=== PATIENT | female | born 1950 | race African-American/Black ===

== ENCOUNTER 2023-06-11 07:22 | Inpatient (IN) | payer MEDICARE, BC ==
[2023-06-11 07:49] LABS: #Eosinphils 0.1 thou/uL (0.0-0.7); #Monocytes 0.7 thou/uL (0.11-0.59); #Neutrophils 8.3 thou/uL (1.40-6.50); %Basophils 0.2 % (0.0-1.0); %Eosinophils 1.1 % (0.0-10.0); %Monocytes 5.7 % (0.0-10.0); %Neutrophils 72.8 % (42.0-75.0); Hematocrit 37.5 % (36.0-47.0); Hemoglobin 12.2 g/dL (12.0-16.0); Mean Corpuscular HGB CONC 32.5 g/dL (32.0-36.0); Mean Corpuscular Hemoglobin 28.2 pg (27.0-31.0); Mean Corpuscular Volume 86.8 fl (78.0-98.0); Mean Platelet Volume 8.4 fL (7.4-10.4); Platelet Count 429 10x3/uL (130-400); RBC Distribution Width 12.7 % (11.5-14.5); Red Blood Cell (RBC) Count 4.32 mill/uL (4.20-5.40); White Blood Cell (WBC) Count 11.4 10x3/uL (4.8-10.8)
[2023-06-11 08:06] LABS: ALT (SGPT) 19 U/L (8-55); AST (SGOT) 26 U/L (5-34); Albumin 3.8 g/dL (3.4-4.8); Alkaline Phosphatase 112 U/L (40-110); Anion Gap 14 mmol/L (10-20); BUN (Urea Nitrogen) 13 mg/dL (9.8-20.1); Bilirubin, Total 0.4 mg/dL (0.2-1.2); Calc. Creatinine Clearance 0 mL/min (70-130); Carbon Dioxide 26 mmol/L (23-31); Chloride 103 mmol/L (98-107); Estimated GFR 75; Globulin 3.7 g/dL (2.4-3.5); Glucose 102 mg/dL (83-110); INR-International Normal Ratio 1.2; PTT 38.8 sec (22.9-36.1); Protein, Total 7.5 g/dL (5.8-8.1); Prothrombin Time 15.2 sec (12.0-14.7); Sodium 139 mmol/L (136-145)
[2023-06-11 08:09] LABS: Troponin I 0.069 ng/mL (< 0.028)
[2023-06-11 09:56] LABS: Bacteria/HPF None Seen HPF (None Seen); Bilirubin Negative (Negative); CAUTI Indications for Culture Alt mental st,lethar; Clarity Clear (Clear); Glucose, Urine (Dipstick) Normal (Negative); Ketone, Urine Trace mg/dL (Negative); Leukocyte Negative Leu/uL (Negative); Nitrite Negative (Negative); Protein, Urine (Dipstick) 20 mg/dL (Neg-Trace); Specific Gravity, Urine 1.027 (1.002-1.036); Squamous Epithelial 0-3 HPF (0-3); Urobilinogen Normal mg/dL (Less than 2); WBC/HPF 0-3 HPF (0-3)
[2023-06-11 10:18] LABS: Blood, Urine 2+ (Negative)
[2023-06-11 10:19] LABS: Urine Culture Reflex No No
[2023-06-11] MEDS ORDERED: Acetaminophen 325 MG TAB PO PRN (11:07)
[2023-06-11] MEDS ORDERED: Ondansetron ODT 4 MG TAB PO PRN (11:07)
[2023-06-11 11:28] LABS: Troponin I 0.059 ng/mL (< 0.028)
[2023-06-11 12:19] VITALS: BMI 25.2
[2023-06-11 15:08] LABS: Troponin I 0.069 ng/mL (< 0.028)
[2023-06-11] MEDS: busPIRone HCl 5 MG TAB PO SCH ×2 (15:42→20:30)
[2023-06-11] MEDS ORDERED: FLU VACC QS2023(65UP)/MF59C/PF 60 MCG/0.5 ML SYRINGE IM ONE (18:00)
[2023-06-11] MEDS: Cilostazol 100 MG TAB PO SCH (20:29)
[2023-06-11] MEDS: Gabapentin 100 MG CAP PO SCH (20:29)
[2023-06-11] MEDS: Atorvastatin Calcium 40 MG TAB PO SCH (20:30)
[2023-06-11] MEDS: Apixaban 5 MG TAB PO SCH (20:30)
[2023-06-11] MEDS: Melatonin 3 MG TAB PO PRN (20:53)
[2023-06-11] MEDS: Bisacodyl 5 MG TAB PO PRN (20:53)
[2023-06-11 21:50] LABS: Troponin I 0.061 ng/mL (< 0.028)
[2023-06-12 05:33] LABS: #Eosinphils 0.1 thou/uL (0.0-0.7); #Monocytes 0.7 thou/uL (0.11-0.59); #Neutrophils 7.6 thou/uL (1.40-6.50); %Basophils 0.2 % (0.0-1.0); %Eosinophils 1.1 % (0.0-10.0); %Lymphocytes 17.7 % (21.0-51.0); %Neutrophils 73.7 % (42.0-75.0); Hematocrit 34.3 % (36.0-47.0); Hemoglobin 11.3 g/dL (12.0-16.0); Mean Corpuscular HGB CONC 32.9 g/dL (32.0-36.0); Mean Corpuscular Hemoglobin 28.3 pg (27.0-31.0); Mean Corpuscular Volume 85.8 fl (78.0-98.0); Mean Platelet Volume 8.6 fL (7.4-10.4); Platelet Count 414 10x3/uL (130-400); RBC Distribution Width 12.6 % (11.5-14.5); White Blood Cell (WBC) Count 10.3 10x3/uL (4.8-10.8)
[2023-06-12 05:55] LABS: ALT (SGPT) 18 U/L (8-55); AST (SGOT) 22 U/L (5-34); Albumin 3.4 g/dL (3.4-4.8); Alkaline Phosphatase 102 U/L (40-110); Anion Gap 10 mmol/L (10-20); BUN (Urea Nitrogen) 12 mg/dL (9.8-20.1); Bilirubin, Total 0.3 mg/dL (0.2-1.2); Calc. Creatinine Clearance 70 mL/min (70-130); Calcium 9.2 mg/dL (7.8-10.44); Carbon Dioxide 26 mmol/L (23-31); Chloride 102 mmol/L (98-107); Estimated GFR 78; Globulin 3.2 g/dL (2.4-3.5); Glucose 105 mg/dL (83-110); Potassium 3.3 mmol/L (3.5-5.1); Protein, Total 6.6 g/dL (5.8-8.1); Sodium 135 mmol/L (136-145)
[2023-06-12] MEDS: Levothyroxine Sodium 50 MCG TAB PO SCH (05:59)
[2023-06-12] MEDS: Apixaban 5 MG TAB PO SCH (08:40)
[2023-06-12] MEDS: Cilostazol 100 MG TAB PO SCH ×2 (08:41→20:13)
[2023-06-12] MEDS: Escitalopram Oxalate 10 mg Tablet PO SCH (08:41)
[2023-06-12] MEDS: busPIRone HCl 5 MG TAB PO SCH ×3 (08:41→20:12)
[2023-06-12] MEDS: Bisacodyl 5 MG TAB PO PRN (08:42)
[2023-06-12] MEDS ORDERED: Potassium Bicarbonate/Cit Ac 20 MEQ TAB PO SCH (09:15)
[2023-06-12] MEDS ORDERED: Aspirin 81 mg Enteric Coated Tablet PO SCH (09:15)
[2023-06-12] MEDS: Gabapentin 100 MG CAP PO SCH (20:12)
[2023-06-12] MEDS: Melatonin 3 MG TAB PO PRN (20:13)
[2023-06-12] MEDS: Atorvastatin Calcium 40 MG TAB PO SCH (20:13)
[2023-06-13 04:32] LABS: #Eosinphils 0.1 thou/uL (0.0-0.7); #Monocytes 0.7 thou/uL (0.11-0.59); #Neutrophils 4.8 thou/uL (1.40-6.50); %Basophils 0.3 % (0.0-1.0); %Eosinophils 1.4 % (0.0-10.0); %Lymphocytes 28.2 % (21.0-51.0); %Monocytes 8.7 % (0.0-10.0); Hematocrit 34.3 % (36.0-47.0); Hemoglobin 11.4 g/dL (12.0-16.0); Mean Corpuscular HGB CONC 33.2 g/dL (32.0-36.0); Mean Corpuscular Hemoglobin 28.6 pg (27.0-31.0); Mean Corpuscular Volume 86.2 fl (78.0-98.0); Mean Platelet Volume 8.5 fL (7.4-10.4); Platelet Count 407 10x3/uL (130-400); RBC Distribution Width 12.8 % (11.5-14.5); Red Blood Cell (RBC) Count 3.98 mill/uL (4.20-5.40); White Blood Cell (WBC) Count 7.9 10x3/uL (4.8-10.8)
[2023-06-13 05:00] LABS: Anion Gap 11 mmol/L (10-20); BUN (Urea Nitrogen) 8 mg/dL (9.8-20.1); Calc. Creatinine Clearance 66 mL/min (70-130); Calcium 9.8 mg/dL (7.8-10.44); Carbon Dioxide 29 mmol/L (23-31); Chloride 102 mmol/L (98-107); Cholesterol 131 mg/dl (< 200 Desired); Estimated GFR 73; Glucose 101 mg/dL (83-110); HDL Cholesterol 44 mg/dL (>60 Neg Risk); LDL Cholesterol, Calculated 76 mg/dL; Potassium 3.8 mmol/L (3.5-5.1); Sodium 138 mmol/L (136-145); Triglycerides 57 mg/dL (Less than 150)
[2023-06-13] MEDS: Levothyroxine Sodium 50 MCG TAB PO SCH (05:40)
[2023-06-13] MEDS ORDERED: Aspirin 81 mg Enteric Coated Tablet PO SCH (09:00)
[2023-06-13] MEDS: Cilostazol 100 MG TAB PO SCH ×2 (10:08→20:19)
[2023-06-13] MEDS: Lorazepam 0.5 MG TAB PO PRN (10:08)
[2023-06-13] MEDS: busPIRone HCl 5 MG TAB PO SCH ×3 (10:08→20:19)
[2023-06-13] MEDS: Aspirin 81 mg Enteric Coated Tablet PO SCH (10:09)
[2023-06-13] MEDS: Escitalopram Oxalate 10 mg Tablet PO SCH (10:09)
[2023-06-13] MEDS: Gabapentin 100 MG CAP PO SCH (20:19)
[2023-06-13] MEDS: Atorvastatin Calcium 40 MG TAB PO SCH (20:19)
[2023-06-14 05:01] LABS: #Eosinphils 0.1 thou/uL (0.0-0.7); #Monocytes 0.6 thou/uL (0.11-0.59); #Neutrophils 5.6 thou/uL (1.40-6.50); %Basophils 0.2 % (0.0-1.0); %Eosinophils 1.5 % (0.0-10.0); %Monocytes 6.9 % (0.0-10.0); %Neutrophils 63.2 % (42.0-75.0); Hematocrit 35.8 % (36.0-47.0); Hemoglobin 11.8 g/dL (12.0-16.0); Mean Corpuscular Hemoglobin 28.3 pg (27.0-31.0); Mean Corpuscular Volume 85.9 fl (78.0-98.0); Mean Platelet Volume 8.6 fL (7.4-10.4); Platelet Count 444 10x3/uL (130-400); RBC Distribution Width 12.8 % (11.5-14.5); Red Blood Cell (RBC) Count 4.17 mill/uL (4.20-5.40); White Blood Cell (WBC) Count 8.9 10x3/uL (4.8-10.8)
[2023-06-14] MEDS: Levothyroxine Sodium 50 MCG TAB PO SCH (05:24)
[2023-06-14 05:41] LABS: Anion Gap 14 mmol/L (10-20); BUN (Urea Nitrogen) 9 mg/dL (9.8-20.1); Calc. Creatinine Clearance 73 mL/min (70-130); Calcium 9.8 mg/dL (7.8-10.44); Carbon Dioxide 27 mmol/L (23-31); Chloride 102 mmol/L (98-107); Estimated GFR 82; Glucose 96 mg/dL (83-110); Potassium 3.8 mmol/L (3.5-5.1); Sodium 139 mmol/L (136-145)
[2023-06-14] MEDS: busPIRone HCl 5 MG TAB PO SCH ×3 (08:33→21:06)
[2023-06-14] MEDS: Cilostazol 100 MG TAB PO SCH ×2 (08:33→21:05)
[2023-06-14] MEDS: Aspirin 81 mg Enteric Coated Tablet PO SCH (08:33)
[2023-06-14] MEDS: Escitalopram Oxalate 10 mg Tablet PO SCH (08:33)
[2023-06-14] MEDS: Bisacodyl 5 MG TAB PO PRN (15:38)
[2023-06-14] MEDS: Gabapentin 100 MG CAP PO SCH (21:06)
[2023-06-14] MEDS: Atorvastatin Calcium 40 MG TAB PO SCH (21:06)
[2023-06-15 05:00] LABS: #Eosinphils 0.1 thou/uL (0.0-0.7); #Monocytes 0.6 thou/uL (0.11-0.59); #Neutrophils 6.2 thou/uL (1.40-6.50); %Basophils 0.3 % (0.0-1.0); %Eosinophils 1.2 % (0.0-10.0); %Lymphocytes 27.3 % (21.0-51.0); %Monocytes 6.1 % (0.0-10.0); %Neutrophils 64.8 % (42.0-75.0); Hematocrit 36.7 % (36.0-47.0); Mean Corpuscular HGB CONC 32.7 g/dL (32.0-36.0); Mean Corpuscular Volume 85.7 fl (78.0-98.0); Mean Platelet Volume 8.4 fL (7.4-10.4); Platelet Count 453 10x3/uL (130-400); RBC Distribution Width 12.7 % (11.5-14.5); Red Blood Cell (RBC) Count 4.28 mill/uL (4.20-5.40); White Blood Cell (WBC) Count 9.6 10x3/uL (4.8-10.8)
[2023-06-15 05:24] LABS: Anion Gap 14 mmol/L (10-20); BUN (Urea Nitrogen) 10 mg/dL (9.8-20.1); Calc. Creatinine Clearance 72 mL/min (70-130); Calcium 9.9 mg/dL (7.8-10.44); Carbon Dioxide 26 mmol/L (23-31); Chloride 101 mmol/L (98-107); Estimated GFR 81; Glucose 96 mg/dL (83-110); Potassium 3.6 mmol/L (3.5-5.1); Sodium 137 mmol/L (136-145)
[2023-06-15] MEDS: Levothyroxine Sodium 50 MCG TAB PO SCH (05:46)
[2023-06-15 08:07] VITALS: TEMP 98
[2023-06-15] MEDS: Cilostazol 100 MG TAB PO SCH (09:54)
[2023-06-15] MEDS: busPIRone HCl 5 MG TAB PO SCH ×2 (09:54→15:39)
[2023-06-15] MEDS: Escitalopram Oxalate 10 mg Tablet PO SCH (09:54)
[2023-06-15] MEDS: Aspirin 81 mg Enteric Coated Tablet PO SCH (09:54)
[2023-06-15 11:34] VITALS: BP 111/63
[2023-06-15] MEDS: Lorazepam 0.5 MG TAB PO PRN (15:39)
== END 2023-06-15 16:08 | DRG 64 ==
LOC: ERS 07:22 → 2NO 10:40 → OBSVTOIN 06-12 12:27
PROVIDERS: ADMIT Family Medicine; ATTEND Internal Medicine
DX: I63.9 Cerebral infarction, unspecified (principal); I21.4 Non-ST elevation (NSTEMI) myocardial infarction; G81.94 Hemiplegia, unspecified affecting left nondominant side; Z51.5 Encounter for palliative care; Z66 Do not resuscitate; R13.10 Dysphagia, unspecified; F41.9 Anxiety disorder, unspecified; K21.9 Gastro-esophageal reflux disease without esophagitis; I10 Essential (primary) hypertension; F32.A Depression, unspecified; E03.9 Hypothyroidism, unspecified; E78.5 Hyperlipidemia, unspecified; R77.8 Other specified abnormalities of plasma proteins; D72.829 Elevated white blood cell count, unspecified; R47.1 Dysarthria and anarthria; Z79.899 Other long term (current) drug therapy; Z79.890 Hormone replacement therapy; Z95.818 Presence of other cardiac implants and grafts; Z90.710 Acquired absence of both cervix and uterus; Z98.49 Cataract extraction status, unspecified eye
CPT/HCPCS: 36415; 36416; 51701; 70450; 70551; 71045; 80048; 80053; 80061; 81001; 84484; 85025; 85610; 85730; 93005

== ENCOUNTER 2024-02-06 17:42 | Emergency (ER) | payer MEDICARE, MEDICAID, OTHER | END 2024-02-06 18:53 | disposition home or self-care (01) | LOC: ERS 17:42 | DX: S06.9X0A Unspecified intracranial injury without loss of consciousness, initial encounter (principal); E78.5 Hyperlipidemia, unspecified; E03.9 Hypothyroidism, unspecified; I10 Essential (primary) hypertension; Z79.01 Long term (current) use of anticoagulants; Z79.899 Other long term (current) drug therapy; W01.198A Fall on same level from slipping, tripping and stumbling with subsequent striking against other object, initial encounter | CPT/HCPCS: 70450; 93005 ==